=== PATIENT | male | born 1950 | race Caucasian/White ===

== ENCOUNTER 2016-12-30 02:04 | Inpatient (IN) | payer OTHER, MEDICARE ==
[~2016-12-30] VITALS: Ht 172.7 cm; Wt 86.2 kg
[~2016-12-30 02:04] MED LIST: FLOMAX(MONOGRA0.4 MG PO; LOTREL 10-20 M1 EACH PO; LYRICA75 M1 PO; PERCOCET 325 MG1 TA2 PO; TORADOL10 MG PO; ZETIA10 M1 PO; ZOFRAN4 M1 PO
--- NOTE | 2016-12-30 09:47 | Operative Report ---
Operative/Inv Procedure Report Surgery Date: 12/30/16 Name of Procedure: Left total knee arthroplasty Pre-Operative Diagnosis: Primary osteoarthritis left knee Post-Operative Diagnosis: Same Estimated Blood Loss: less than 50ml Surgeon/Fly Finisher: DAVIN FLORES,TERA LAGUNAS Anesthesia: block (spinal) IV Fluids: See anesthesia record Implants: [place] triathlon posterior stabilized knee size 6 femur, size 6 tibia, 11 mm polyethylene insert, 35 patella Drains: None Specimens: Bone to pathology Tourniquet: 54 minutes Complications: None Condition: Stable Operative Indication: Patient's a 66-year-old male with severe osteoarthritis of the left knee. He has failed conservative treatment of his knee pain and was indicated for total knee arthroplasty. The risks and benefits of the procedure were discussed with the patient detail and he wished to proceed. Skilled set of hands was necessary provided by physician radiology assistant Abundio Melgar weighted with retraction positioning and component assembly throughout the case. Operative/Procedure Note Note: Once informed consent was obtained and the correct limb was identified the patient brought to operating room placed on table supine position. After administration of spinal anesthesia and sedation the patient's left leg had a tourniquet placed and a Royal catheter was placed. The left lower 70 is prepped and draped in usual sterile fashion. To begin the procedure standard midline incision was made. Sharp dissection was carried down to skin and subcutaneous tissue and fat. A medial parapatellar arthrotomy was made and the patella was everted. Fat pad is removed from the patellar tendon. Patellar thickness was measured be 25 mm and a plan resection of 10 mm was performed using patellar clamp and an oscillating saw. Patella was then sized to be an asymmetric 35 patella. The jig for the patella was placed on the patella and the lug holes were drilled. At this point the knee was then placed into flexion and the patella was retracted laterally. Z retractors were placed to protect the medial and lateral collateral ligaments. Step drill was used to enter the femoral canal for the intramedullary distal cutting guide for the femur. The distal femoral cutting guide was set for a 6 valgus cut with 10 mm resection. Distal femoral cut was made without complication. The femur was then sized to be a size 6 femur. A 4-in-1 cutting block was placed on the femur for the size 6 and anterior, posterior, chamfer cuts were made without complication. Bone was passed off as specimen. Next the box cut guide for a size 6 femur was placed on the femur and the box cut for posterior stabilized knee was made without compensation. At this point we are able to answer laid the tibia anteriorly after resection of the cruciate ligaments and the menisci were resected. Using a curved osteotome posterior osteophytes off the femoral condyles were removed as well next a step drill was used to enter the intramedullary canal of the tibia. The intramedullary cutting guide for the tibia was placed down the canal and a plan resection of 4 mm off the affected, or medial, compartment of the knee was performed. Tibial bone was sent as specimen. The tibia was then sized to be a size 6 tibia. Trial reduction was done with a 6 femur 6 tibia and a 9 mm polyethylene insert. The knee was slightly lax in valgus stress so we went to an 11 mm poly-ethylene insert. With an 11 mm polyethylene insert and the 6 femur component and [address] reduction was performed. The knee had full extension and was stable to varus and valgus stress at 0 and 60. Knee was taken through a range of motion and had excellent flexion. Patellar tracked nicely. Tibial component rotation was marked and the components removed. The tibial tray was then pinned in place and the keel cut was made. This point all components removed the knee was placed in extension and pulse lavage. Cement was mixed on the back table and the components were cemented in place with the tibial component cemented first followed by the femoral component and the patellar button. All excess cement was removed with curettes and a 11 mm trial insert was placed and the knee was placed in full extension while the cement hardened. Once the cement hardened and trial range of motion was again performed and the knee was stable. The insert was removed and an 11 mm poly- ethylene insert for the size 6 tibial insert was opened and placed onto the tibial component and locked in place. Knee was pulse lavaged. The tourniquet was released and bleeding was stopped with electrocautery device. 60 mL of a expaqrel solution was injected around the knee for pain relief postoperatively. The arthrotomy is closed #1 Vicryl interrupted sutures. The subcutaneous tissues closed #1 Vicryl and 2-0 Vicryl interrupted sutures. Skin was closed cyn and sterile dressing was applied. The patient was awakened taken recovery in stable condition.
[2016-12-30 12:50] VITALS: BP 140/80
--- NOTE | 2016-12-30 13:38 | PN- Orthopedic ---
Subjective Subjective: The patient was seen this afternoon postoperatively. He reports his pain is under adequate control and is no complaints at the current time. Objective Vital Signs and I&Os Intake & Output 12/30 1600 12/30 0812/30 0000 12/29 1600 12/29 0812/29 0000 Intake Total Output Total Balance Patient 190 lb Weight Vital signs: Patient is afebrile stable vital signs Physical Exam: Gen.: Alert and in no obvious distress Skin: Warm and dry Cardiac: S1-S2 regular Pulmonary: Bilateral breath sounds were equal and slightly decreased at bases Extremities: Bilateral lower extremities are warm without calf tenderness or significant edema. Gross motor and sensory were intact. Left knee surgical dressing is clean, dry, and intact. Assessment/Plan Assessment/Plan Assessment: 66-year-old male status post left total knee arthroplasty. Postoperative the patient is progressing as expected and his pain is under adequate control. Plan: Out of the physical therapy patient is weightbearing as tolerated Continue current pain regiment Resume home medications Postoperative prophylactic antibiotics Incentive spirometry Advance diet as tolerated Strict I's and O's Continue Royal catheter and IV fluids until the morning GI and DVT prophylaxis First dose of Eliquis tonight Core Measures/Miscellaneous Venous Thromboembolism VTE Risk Factors: Age > 40, Surgery VTE Contraindications: No Contraindications VTE Diagnosis: No Beta Panfilo Is Beta Panfilo a Home Med? No Antibiotics Is Patient on Antibiotics? Yes If Yes: prophylaxis
[2016-12-30 15:56] VITALS: BP 152/90
[2016-12-30 18:12] VITALS: BP 160/90
[2016-12-30 20:24] VITALS: BP 141/81
[2016-12-31 00:34] VITALS: BP 138/70
[2016-12-31 04:48] VITALS: BP 136/68
--- NOTE | 2016-12-31 07:21 | PN- Orthopedic ---
Subjective Subjective: Pt. reports having pain mostly at knee cap and feels Von bandage is too tight at the thigh level. Received Perccoet 2 tabs at 3:30 am and morphine inj. at 6; 50 this morning with some relief Objective Vital Signs and I&Os Vital Signs Date Time Temp Pulse Resp B/P B/P Pulse O2 O2 Flow FiO2 Mean Ox Delivery Rate 12/31 0448 100.4 74 20 136/68 94 Room Air 12/31 0158 100.8 12/31 0038 101.1 12/31 0034 101.1 101 20 138/70 94 Room Air 12/30 2024 99.2 70 18 141/81 95 Room Air 12/30 1812 98.3 75 18 160/90 97 Room Air 12/30 1556 98.5 65 18 152/90 96 Room Air 12/30 1403 97.4 60 16 140/80 12/30 1402 97.4 60 16 140/80 12/30 1250 97.4 60 16 140/80 98 Room Air Intake & Output 12/31 0800 12/31 0000 12/30 1600 12/30 0800 12/30 0000 12/29 1600 Intake Total 900 1105 480 Output Total 850 950 450 Balance 50 155 30 Intake, IV 600 625 Intake, Oral 300 480 480 Output, Urine 850 950 450 Patient 190 lb Weight Alert, orinted, appropriate Lungs clear Cor regular Abdomen benign Left knee with intact gross motor movement, perfused distally , warm to touch, neuro intact. No calf pain. On Q pump in place. Assessment/Plan Assessment/Plan s/o LTKA POD#1 for DJD Stable hemodynamics.Low grade temp. Pain ; I encouraged PO Percocet, IV Morphine if pain persists despite Percocet. I will add one dose of Toradol today. Demar vascular check intact. Awaiting PT eval./ mobilize Will d/c IVF Making adequate urine, will d/c Royal Will follow blood work results. On Eliquis for anticoagulation. Core Measures/Miscellaneous Venous Thromboembolism VTE Risk Factors: Age > 40, Surgery VTE Contraindications: No Contraindications VTE Diagnosis: No Beta Panfilo Is Beta Panfilo a Home Med? No Antibiotics Is Patient on Antibiotics? Yes If Yes: prophylaxis
[2016-12-31 08:01] LABS: ABSOLUTE BASOPHIL COUNT 0 /CUMM (0.0-0.2); ABSOLUTE EOSINOPHIL COUNT 0.2 /CUMM (0.0-0.7); ABSOLUTE LYMPH COUNT 1.9 /CUMM (1.2-3.4); ABSOLUTE MONOCYTE COUNT 1.2 /CUMM (0.10-0.60); BASOPHIL % 0.3 % (0.0-2.0); EOSINOPHIL % 1.5 % (0-5); GRANULOCYTE % 68.5 % (42.2-75.2); HEMATOCRIT 38.1 % (42-52); MEAN CORPUSCULAR HGB 29.8 PG (27.0-31.0); MEAN CORPUSCULAR HGB CONC 33.4 G/DL (33.0-37.0); MEAN CORPUSCULAR VOLUME 89.2 FL (80.0-94.0); MEAN PLATELET VOLUME 8.2 FL (7.4-10.4); PLATELET COUNT 207 /CUMM (130-400); RBC DISTRIBUTION WIDTH 14.2 % (11.5-14.5); RED BLOOD CELL CT 4.27 /CUMM (4.70-6.10); WHITE BLOOD CELL COUNT 10.3 /CUMM (4.8-10.8)
[2016-12-31 09:12] VITALS: BP 104/70
--- NOTE | 2016-12-31 09:27 | Cons- Medical ---
General Information and HPI Consulting Request Date of Consult: 12/31/16 Requested By: TERA JIN MD Reason for Consult: Medical comanagement Source of Information: patient, old records Exam Limitations: no limitations History of Present Illness: 66-year-old male with history of hypertension and hyperlipidemia is status post left knee arthroplasty for severe osteoarthritis postoperative day 1. He has done well postoperatively able to ambulate with moderate discomfort. Also noted he has had fever 101.1 early this morning. However he denies any respiratory symptoms or dysuria. Pain left moderate and well controlled on current pain medications. Allergies/Medications Allergies: Coded Allergies: NO KNOWN ALLERGIES (01/07/16) Home Med List: Amlodipine Besylate/Benazepril (Lotrel 10-20 MG Capsule) 10 MG-20 MG CAPSULE 1 CAP PO DAILY BP (Reported) Ezetimibe (Zetia) 10 MG TABLET 1 TAB PO DAILY CHOL (Reported) Pregabalin (Lyrica) 75 MG CAPSULE 1 CAP PO BID PAIN (Reported) Current Medications: Current Medications Sig/Gretchen Start time Last Medication Dose Route Stop Time Status Admin Acetaminophen 650 MG ONCE ONE 12/31 0045 DC 12/31 PO 12/31 0046 0038 Acetaminophen 650 MG ONCE ONE 12/30 1630 DC 12/30 PO 12/30 1631 1629 Al Hydroxide/Mg 30 ML Q6P PRN 12/30 1300 AC Hydroxide PO Amlodipine Besylate 10 MG DAILY 12/30 1000 AC 12/31 PO 0908 Apixaban 2.5 MG BID 12/31 1000 AC 12/31 PO 0909 Dextrose/Lactated 1,000 ML Q13H 12/30 1300 DC 12/31 Ringer's IV 0232 Docusate Sodium 100 MG DAILY NEEDED PRN 12/30 1300 AC PO Ezetimibe 10 MG DAILY 12/30 1000 AC 12/31 PO 0908 Ketorolac 15 MG ONCE PRN 12/31 0715 DC 12/31 Tromethamine IV 12/31 0800 0747 Lisinopril 10 MG DAILY 12/30 1000 AC 12/31 PO 0908 Morphine Sulfate 2 MG Q3P PRN 12/30 1300 AC 12/30 IV 2334 Morphine Sulfate 4 MG Q3P PRN 12/30 1300 AC 12/31 IV 0650 Ondansetron HCl 4 MG Q6P PRN 12/30 1300 AC IV Oxycodone/ 1 TAB Q4P PRN 12/30 1300 AC Acetaminophen PO Oxycodone/ 2 TAB Q4P PRN 12/30 1300 AC 12/31 Acetaminophen PO 0334 Polyethylene Glycol 17 GM DAILY NEEDED PRN 12/30 1300 AC PO Pregabalin 75 MG BID 12/30 1000 AC 12/31 PO 0907 Senna/Docusate Sodium 2 TAB AT BEDTIME NEED.. 12/30 1300 AC PO Vancomycin HCl 1,000 MG ONCE ONE 12/30 1900 DC 12/30 Sodium Chloride 250 ML IV 12/30 1958 192 Vancomycin HCl 1,000 MG ONCE 12/30 0000 DC Sodium Chloride 250 ML IV 12/30 2359 Review of Systems Review of Systems Constitutional: Denies: no symptoms, see HPI, chills, diaphoresis, fever, malaise, weakness, unexplained weight loss. Cardiovascular: Denies: no symptoms, see HPI, chest pain, edema, orthopena, palpitations, peripheral edema, syncope. Respiratory: Denies: no symptoms, see HPI, cough, hemoptysis, orthopnea, short of breath, sputum production, stridor, wheezing. GI: Denies: no symptoms, see HPI, abdominal pain, bloating, constipation, diarrhea, distention, bowel incontinence, melena, nausea, bloody stool, changes in stool, vomiting, steatorrhea. Musculoskeletal: Reports: joint pain, joint swelling. Skin: Denies: no symptoms, see HPI, cysts, change in skin color, change in hair/nails, dryness, erythema, jaundice, lesions, lymphangitis, lumps, moles, rash. Past History Medical History Blood Transfusion Hx: No Neurological: NONE EENT: NONE Cardiovascular: hypertension, hyperlipidemia Respiratory: NONE Gastrointestinal: NONE Hepatic: NONE Renal: nephrolithiasis Musculoskeletal: chronic back pain, disk herniation, osteoarthritis Psychiatric: NONE Endocrine: NONE Blood Disorders: NONE Cancer(s): NONE EMU FARMER/Reproductive: NONE Surgical History Surgical History: arthroscopy, LUMBAR LAMENECTOMY ESWAL Psychosocial History Where Do You Live? Home Services at Home: None Smoking Status: Never Smoked Exam & Diagnostic Data Last 24 Hrs of Vital Signs/I&O Vital Signs Date Time Temp Pulse Resp B/P B/P Pulse O2 O2 Flow FiO2 Mean Ox Delivery Rate 12/31 0912 98.9 70 18 104/70 92 Room Air 12/31 0908 70 104/70 12/31 0908 70 104/70 06/29 0448 100.4 74 20 136/68 94 Room Air 12/31 0158 100.8 12/31 0038 101.1 12/31 0034 101.1 101 20 138/70 94 Room Air 12/30 2024 99.2 70 18 141/81 95 Room Air 12/30 1812 98.3 75 18 160/90 97 Room Air 12/30 1556 98.5 65 18 152/90 96 Room Air 12/30 1403 97.4 60 16 140/80 12/30 1402 97.4 60 16 140/80 12/30 1250 97.4 60 16 140/80 98 Room Air Intake & Output 12/31 1600 12/31 0800 12/31 0000 Intake Total 900 1105 Output Total 850 950 Balance 50 155 Intake, IV 600 625 Intake, Oral 300 480 Output, Urine 850 950 Physical Exam General Appearance: alert, awake, mild distress Respiratory: normal breath sounds, lungs clear Cardiovascular: regular rate/rhythm Gastrointestinal: normal bowel sounds, soft, non-tender Extremities: left knee dressing Skin: intact Last 24 Hrs of Labs/Romeo: Laboratory Tests 12/31/16 0612: Anion Gap 7, Estimated GFR > 60, BUN/Creatinine Ratio 11.3, CBC w Diff NO MAN DIFF REQ, RBC 4.27 L, MCV 89.2, MCH 29.8, RDW 14.2, MPV 8.2, Gran % 68.5, Lymphocytes % 18.0 L, Monocytes % 11.7 H, Eosinophils % 1.5, Basophils % 0.3, Absolute Granulocytes 7.0 H, Absolute Lymphocytes 1.9, Absolute Monocytes 1.2 H, Absolute Eosinophils 0.2, Absolute Basophils 0, PUBS MCHC 33.4 Assessment/Plan Assessment/Plan 66-year-old male with history of hypertension and hyperlipidemia is status post left knee arthroplasty for severe osteoarthritis postoperative day 1. He has done well postoperatively, able to ambulate with minimal discomfort. Also noted he had a fever 101.1 early this morning. However he denies any respiratory symptoms or dysuria. Royal was discontinued. Pain left knee is moderate and well controlled on current pain medications. Eliquis initiated for DVT prophylaxis. Plan Check UA if he has persistent fever Consider transitioning to oral pain meds Strict constipation regimen Continue other home meds Continue DVT prophylaxis for 6 weeks Copies To: DAVIN FLORES,TERA Goodwin Consult Acknowledgment - Thank you for your consult request.
[2016-12-31 14:19] VITALS: BP 125/70
[2016-12-31 22:24] VITALS: BP 134/68
[2017-01-01 06:36] VITALS: BP 110/68
--- NOTE | 2017-01-01 07:23 | PN- Orthopedic ---
See Addendum Surgical Brief Attending Note Brief Attending Note: Patient seen this morning. He is postoperative day #2 status post left total knee replacement. Patient complaining of mild to moderate pain which is controlled with Percocet but he does require an every 4 hours. Patient has not had a bowel movement yet. He did get up with physical therapy and he felt that he did pretty well yesterday. On physical exam this morning the patient's awake and alert. The knee incision is clean dry and intact. There is no calf tenderness. He is moving all his toes. Extremities grossly neurovascular intact. Assessment status post left total knee arthroplasty. Plan: The patient will continue with physical therapy today. We will continue to monitor pain. We will follow-up with his labs. We will continue with anticoagulation.
--- NOTE | 2017-01-01 08:59 | PN- Medicine Consult ---
Assessment/Plan Assessment/Plan Assessment: 66-year-old male with history of hypertension and hyperlipidemia is status post left knee arthroplasty for severe osteoarthritis postoperative day 2. He has done well postoperatively, able to ambulate with minimal discomfort. He had a fever 101.1 yesterday and has since remained afebrile. Urine culture is negative. Noted pain medication increased for adequate control. Eliquis initiated for DVT prophylaxis. Plan: Plan Continue current pain meds Strict constipation regimen upon discharge Continue other home meds Continue DVT prophylaxis for 6 weeks Stable for discharge Subjective Subjective: Patient complains of moderate to severe pain requiring high-dose pain medication. Review of Systems Constitutional: Denies: no symptoms, see HPI, chills, diaphoresis, fever, malaise, weakness, unexplained weight loss. Cardiovascular: Denies: no symptoms, see HPI, chest pain, edema, orthopena, palpitations, peripheral edema, syncope. Respiratory: Denies: no symptoms, see HPI, cough, hemoptysis, orthopnea, short of breath, sputum production, stridor, wheezing. Gastrointestinal: Denies: no symptoms, see HPI, abdominal pain, bloating, constipation, diarrhea, distention, bowel incontinence, melena, nausea, bloody stool, changes in stool, vomiting, steatorrhea. Genitourinary: Denies: no symptoms, see HPI, discharge, dysuria, frequency, hematuria, hesitation, nocturia, pain, urgency. Musculoskeletal: Reports: joint pain. Skin: Denies: no symptoms, see HPI, cysts, change in skin color, change in hair/nails, dryness, erythema, jaundice, lesions, lymphangitis, lumps, moles, rash. Objective Last 24 Hrs of Vital Signs/I&O Vital Signs Date Time Temp Pulse Resp B/P B/P Pulse O2 O2 Flow FiO2 Mean Ox Delivery Rate 01/01 0829 82 128/76 01/01 0829 82 128/76 01/01 0636 99.6 82 18 110/68 93 Room Air 12/31 2224 99.9 68 20 134/68 93 Room Air 12/31 1419 98.2 80 20 125/70 94 12/31 0912 98.9 70 18 104/70 92 Room Air 12/31 0908 70 104/70 12/31 0908 70 104/70 Intake & Output 01/01 1600 01/01 0800 01/01 0000 Intake Total 240 760 Output Total 450 Balance -210 760 Intake, IV 10 Intake, Oral 240 750 Output, Urine 450 Physical Exam General Appearance: alert, awake, lethargic Cardiovascular: regular rate/rhythm Respiratory: normal breath sounds, lungs clear Abdomen: soft, non-tender Extremities: LEFT KNEE SWELLING Current Medications: Current Medications Sig/Gretchen Start time Last Medication Dose Route Stop Time Status Admin Al Hydroxide/Mg 30 ML Q6P PRN 12/30 1300 AC Hydroxide PO Amlodipine Besylate 10 MG DAILY 12/30 1000 AC 01/01 PO 0829 Apixaban 2.5 MG BID 12/31 1000 AC 12/31 PO 2109 Docusate Sodium 100 MG BID 01/01 1000 AC 01/01 PO 0829 Docusate Sodium 100 MG DAILY NEEDED PRN 12/30 1300 DC PO Ezetimibe 10 MG DAILY 12/30 1000 AC 12/31 PO 0908 Lisinopril 10 MG DAILY 12/30 1000 AC 01/01 PO 0829 Morphine Sulfate 2 MG Q3P PRN 12/30 1300 AC 12/30 IV 2334 Morphine Sulfate 4 MG Q3P PRN 12/30 1300 AC 12/31 IV 0650 Ondansetron HCl 4 MG Q6P PRN 12/30 1300 AC IV Oxycodone HCl 7.5 MG Q4P PRN 01/01 0730 AC 01/01 PO 0829 Oxycodone HCl 15 MG Q4P PRN 01/01 0730 AC PO Oxycodone/ 1 TAB Q4P PRN 12/30 1300 DC Acetaminophen PO Oxycodone/ 2 TAB Q4P PRN 12/30 1300 DC 01/01 Acetaminophen PO 0512 Patient Medication 1 ED .STK-MED ONE 12/31 1415 DC Teaching ED 12/31 1416 Polyethylene Glycol 17 GM BID 01/01 1000 AC 01/01 PO 0830 Polyethylene Glycol 17 GM DAILY NEEDED PRN 12/30 1300 DC PO Pregabalin 75 MG BID 12/30 1000 AC 01/01 PO 0829 Senna/Docusate Sodium 2 TAB QPM 01/01 2200 AC PO Senna/Docusate Sodium 2 TAB AT BEDTIME NEED.. 12/30 1300 DC PO Results Last 24 Hrs Lab/Romeo Results: NONE
--- NOTE | 2017-01-01 13:30 | RADIOLOGY REPORT ---
EXAMINATION: XR KNEE, LEFT CLINICAL INFORMATION: 66-year-old male status post left total knee replacement. COMPARISON: None TECHNIQUE: Two views of the left knee. FINDINGS: Patient is status post total knee replacement. Hardware is intact and in normal anatomic alignment. Expected postsurgical changes including subcutaneous emphysema, soft tissue swelling and overlying skin cyn noted. No evidence of acute fracture. No abnormal soft tissue calcification. IMPRESSION: Status post total left knee replacement. Hardware is intact and in normal alignment.
[2017-01-01 14:42] VITALS: BP 162/68
[2017-01-01 22:42] VITALS: BP 144/62
[2017-01-02 06:59] VITALS: BP 134/72
--- NOTE | 2017-01-02 07:13 | PN- Orthopedic ---
See Addendum Subjective Subjective: POD#3 S/P LEFT TKA NO MAJOR ISSUES OVERNIGHT DENIES CP, SOB, NO N+V WITH DIET TOLERATING DIET HAVING DIFFICULTY HAVING BM Objective Vital Signs and I&Os Vital Signs Date Time Temp Pulse Resp B/P B/P Pulse O2 O2 Flow FiO2 Mean Ox Delivery Rate 01/02 0659 99.2 76 18 134/72 95 Room Air 01/01 2242 98.1 74 20 144/62 97 Room Air 01/01 1803 99.9 01/01 1801 99.9 01/01 1644 100.4 01/01 1614 100.4 01/01 1442 100.9 87 20 162/68 93 01/01 0829 82 128/76 01/01 0829 82 128/76 Intake & Output 01/02 0800 01/02 0000 01/01 1600 01/01 0800 01/01 0000 12/31 1600 Intake Total 200 200 240 240 760 555 Output Total 300 450 200 Balance -100 200 240 -210 760 355 Intake, IV 10 75 Intake, Oral 200 200 240 240 750 480 Number 0 Bowel Movements Output, Urine 300 450 200 Physical Exam: CV: RRR LUNGS: CLEAR ABD: SOFT, +BS EXT: NO CALF TENDERNESS BILAT WOUND C/D/I DISTAL CMS INTACT Assessment/Plan Assessment/Plan ORTHO STABLE HAS BEEN CLEARED BY PT PLAN TITRATE PAIN MEDS BOWEL REGIME PLAN FOR D/C HOME LATER TODAY WILL D/W ATTENDING Core Measures/Miscellaneous Venous Thromboembolism VTE Risk Factors: Age > 40, Surgery VTE Contraindications: No Contraindications VTE Diagnosis: No Beta Panfilo Is Beta Panfilo a Home Med? No Antibiotics Is Patient on Antibiotics? Yes If Yes: prophylaxis
--- NOTE | 2017-01-02 08:13 | PN- Att Addend ---
Attending Addendum Attending Brief Note Medical attending note. Patient is doing well his knee pain has markedly decreased is some reduction in the swelling as well. He is ambulating fairly well but limitation of flexion. Intake & Output 01/02 0801/02 0000 Intake Total 200 200 Output Total 300 Balance -100 200 Intake, Oral 200 200 Output, Urine 300 Vital Signs Date Time Temp Pulse Resp B/P B/P Pulse O2 O2 Flow FiO2 Mean Ox Delivery Rate 01/02 0659 99.2 76 18 134/72 95 Room Air 01/01 2242 98.1 74 20 144/62 97 Room Air 01/01 1803 99.9 01/01 1801 99.9 01/01 1644 100.4 01/01 1614 100.4 01/01 1442 100.9 87 20 162/68 93 01/01 0829 82 128/76 01/01 0829 82 128/76 Intake & Output 01/02 0801/02 0000 Intake Total 200 200 Output Total 300 Balance -100 200 Intake, Oral 200 200 Output, Urine 300 On examination Patient is awake alert oriented 3. Mucous membrane is moist neck is supple conjunctivae is pink S1-S2 is normal Lungs are clear Abdomen is soft nontender bowel sounds are present Left knee there is some minimal to swelling around the upper part of the leg no calf tenderness present. No neurological deficit present. Assessment Status post left total knee replacement patient will be discharged home under the care of the orthopedic surgeon will continue anticoagulation as well as physical therapy at home advised to keep an eye on his wound and to report if there is any drainage the orthopedic surgeon. Continue with incentive spirometry. Take stool softeners of constipated Adequate pain management.
[2017-01-02 08:20] VITALS: BP 132/78
--- NOTE | 2017-01-02 10:53 | Patient Discharge Instructions ---
Discharge Instructions General Discharge Information You were seen/treated for: primary knee djd You had these procedures: left tka Watch for these problems: temp>101.5, increased wound drainage/redness, increased pain with ambualtion Call Surgeon to remove: Surya No bath, but you may shower: Yes Other wound care: keep wound clean amd dry, daily sterile drsg changes Diet Continue normal diet: Yes Activity Activity Limited to: Weight bear as tolerated Other activity limits: no strenuous activity Acute Coronary Syndrome Inclusion Criteria At DC or during hospital stay patient has or had the following: ACS DIAGNOSIS No Discharge Core Measures Meds if any: Prescribed or Continued at Discharge Meds if any: NOT Prescribed or Continued at Discharge Congestive Heart Failure Inclusion Criteria At DC or during hospital stay patient has or had the following: CHF DIAGNOSIS No Discharge Core Measures Meds if any: Prescribed or Continued at Discharge Meds if any: NOT Prescribed or Continued at Discharge Cerebrovascular accident Inclusion Criteria At DC or during hospital stay patient has or had the following: CVA/TIA Diagnosis No Discharge Core Measures Meds if any: Prescribed or Continued at Discharge Meds if any: NOT Prescribed or Continued at Discharge Venous thromboembolism Inclusion Criteria VTE Diagnosis No VTE Type NONE VTE Confirmed by (Test) NONE Discharge Core Measures - Per Current guidelines, there needs to be overlap - treatment for the first 5 days of Warfarin therapy. - If discharged on Warfarin prior to 5 days of - overlap therapy, the patient will need to be - assessed for post discharge needs including - *Post discharge parental anticoagulation - *Warfarin and/or parental anticoagulation education - *Follow up date to check INR post discharge At least 5 days overlap therapy as Inpatient No Meds if any: Prescribed or Continued at Discharge Note: Overlap Therapy is Warfarin and Anticoagulant Meds if any: NOT Prescribed or Continued at Discharge
[2017-01-02] MEDS ORDERED: OXYCODONE HCL5 M1 PO (10:57)
[2017-01-02] MEDS ORDERED: DOCUSATE SODIU100 M3 PO (10:57)
[2017-01-02] MEDS ORDERED: MIRALAX119 GM PO (10:57)
[2017-01-02] MEDS ORDERED: ELIQUIS2.5 M1 PO (10:57)
--- NOTE | 2017-01-02 11:06 | Discharge Summary ---
Visit Information Visit Dates Admission Date: 12/30/16 Discharge Date: 01/02/17 Hospital Course Course Attending Physician: DAVIN FLORES,TERA Goodwin Primary Care Physician: ERVIN FLORES,KARRIE Sher Hospital Course: Mr. Don is a 66-year-old male with past medical history of hypertension and hypercholesterolemia was admitted to the hospital on 12/30/2016 for primary left knee DJD. He was taken to the operating room and underwent left total knee arthroplasty. He tolerated procedure well he is transferred to the floor. He was out of bed with physical therapy postop. He was also placed on Eliquis twice a day for DVT prophylaxis. After being cleared by [facility] the for discharge by physical therapy he was discharged without event. Allergies: Coded Allergies: NO KNOWN ALLERGIES (01/07/16) Significant Procedures: Left total knee arthroplasty Pertinent Lab Results: None Disposition Summary Disposition Principal Diagnosis: Primary left knee DJD Additional Diagnosis: None Discharge Disposition: home health services Discharge Instructions General Discharge Information Code Status: Full Code Patient's Diet: Regular diet Patient's Activity: May be weightbearing tolerated left lower extremity Dry sterile dressing to left knee daily Continue Eliquis twice a day for DVT prophylaxis until otherwise instructed Follow-Up Instructions/Appts: Follow-up in Dr. Strickland's office in 2 weeks for staple removal to left knee Any changes in wound appearance, temperature greater than 101.5, increased left knee pain with ambulation, please contact Dr. Strickland [facility] Medications at Discharge Discharge Medications: Continue taking these medications: Amlodipine Besylate/Benazepril (Lotrel 10-20 MG Capsule) 10 MG-20 MG CAPSULE 1 Capsule ORAL DAILY Ezetimibe (Zetia) 10 MG TABLET 1 Tablet ORAL DAILY Pregabalin (Lyrica) 75 MG CAPSULE 1 Capsule ORAL TWICE DAILY Start taking the following new medications: Apixaban (Eliquis) 2.5 MG TABLET 1 Tablet ORAL TWICE DAILY Qty = 60 No Refills Oxycodone HCl (Oxycodone HCl) 5 MG TABLET 1-2 Tablet ORAL EVERY 4 HOURS NEEDED as needed for PAIN SCALE 4-6 ( MODERATE) Qty = 36 No Refills Docusate Sodium (Docusate Sodium) 100 MG CAPSULE 1 Tablet ORAL TWICE DAILY Qty = 30 No Refills Polyethylene Glycol 3350 (Miralax) 17 GRAM/DOSE POWDER 1 PACKET ORAL TWICE DAILY as needed for NO BM IN TWO DAYS Qty = 10 No Refills Copies To: DAVIN FLORES,TERA Goodwin
== END 2017-01-02 12:10 | disposition home health service (06) | DRG 470 ==
LOC: SDA 02:04 → ENRESERV 11:55 → ENTRNSPT 12:21 → EDTRNSPTSTS 12:33 → 2NA 12:39 → CMPTRNSPT 13:03 → ENPENDDIS 01-02 11:28 → 2NA 01-02 12:10
PROVIDERS: Physician Assistant Surgical; ADMIT Orthopaedic Surgery Foot and Ankle Surgery
PROC: 0SRD0J9 Replacement of Left Knee Joint with Synthetic Substitute, Cemented, Open Approach (ICD-10-PCS; principal; 2016-12-30)
DX: M17.12 Unilateral primary osteoarthritis, left knee (principal); I10 Essential (primary) hypertension; E78.00 Pure hypercholesterolemia, unspecified
CPT/HCPCS: 2NAP; 36415; 73560-LT; 82436; 87086; 88305; 97110-GO; 97116-GO; 97161-GP; 97530-GO; C1713; C9290; J0131; J2795; J3370; J7040